=== PATIENT | male | born 1975 | race African-American/Black ===

== ENCOUNTER 2019-07-08 10:41 | Emergency (ER) | payer SELFPAY ==
--- NOTE | 2019-07-08 12:03 | ER ---
Nurse's Notes [facility] Name: Wai Garcia Age: 43 yrs Sex: Male : 1975 Arrival Date: 07/08/2019 Time: 10:42 Bed 11 Private MD: Diagnosis: Dermatitis, unspecified Presentation: 07/08 11:07 Presenting complaint: Patient states: R eye lid swollen since work last night. no ch matting. no visual issues. Transition of care: patient was not received from another setting of care. Onset of symptoms was July 07, 2019 at 21:00. Risk Assessment: Do you want to hurt yourself or someone else? Patient reports no desire to harm self or others. Initial Sepsis Screen: Does the patient meet any 2 criteria? No. Patient's initial sepsis screen is negative. Does the patient have a suspected source of infection? No. Patient's initial sepsis screen is negative. Care prior to arrival: None. 11:07 Method Of Arrival: Ambulatory 11:07 Acuity: [place] 5 ch Triage Assessment: 11:08 General: Appears in no apparent distress. comfortable, Behavior is calm, cooperative, ch appropriate for age. Pain: Complains of pain in right supraorbital ridge and right upper eyelid Pain currently is 2 out of 10 on a pain scale. EENT: Lid(s) pt has swelling of R eye lid. Historical: - Allergies: 11:08 No Known Allergies; ch - Home Meds: 11:08 None [Active]; ch - PMHx: 11:08 None; ch - PSHx: 11:08 None; ch - Immunization history:: Adult Immunizations up to date, Flu vaccine is not up to date. - Social history:: Smoking status: Patient/guardian denies using tobacco, Patient/guardian denies using alcohol, street drugs. - Ebola Screening: : Patient negative for fever greater than or equal to 101.5 degrees Fahrenheit, and additional compatible Ebola Virus Disease symptoms Patient denies exposure to infectious person Patient denies travel to an Ebola-affected area in the 21 days before illness onset No symptoms or risks identified at this time. Screenin:47 Abuse screen: Denies threats or abuse. Denies injuries from another. Nutritional ss screening: No deficits noted. Tuberculosis screening: Never had TB. Fall Risk None identified. Assessment: 11:47 General: Appears in no apparent distress. comfortable, Behavior is calm, cooperative, ss Denies fever, feeling ill, fatigue, chills. Pain: Complains of pain in right upper eyelid Pain currently is 2 out of 10 on a pain scale. Neuro: Level of Consciousness is awake, alert, obeys commands, Oriented to person, place, time, situation. Cardiovascular: Capillary refill < 3 seconds is brisk in bilateral fingers. Respiratory: Airway is patent Respiratory effort is even, unlabored, Respiratory pattern is regular, symmetrical. GI: No signs and/or symptoms were reported involving the gastrointestinal system. EENT: Nares are clear Oral mucosa is moist. Throat is clear. Derm: Skin is pink, warm \T\ dry. Musculoskeletal: mild swelling noted to R upper eyelid. Vital Signs: 11:08 BP 127 / 66; Pulse 72; Resp 16; Temp 98.8; Pulse Ox 98% on R/A; Weight 108.86 kg; ch Height 6 ft. 1 in. (185.42 cm); Pain 2/10; 11:08 Body Mass Index 31.66 (108.86 kg, 185.42 cm) ED Course: 10:42 Patient arrived in ED. as 11:08 Triage completed. 11:08 Arm band placed on left wrist. Patient placed in waiting room. 11:28 Shwetha Dinh FNP-C is [facility]. snw 11:28 Norman Varela MD is Attending Physician. snw 11:46 Lindsay Kate RN is Primary Nurse. 11:47 Patient has correct armband on for positive identification. Bed in low position. Call ss light in reach. 12:16 No provider procedures requiring assistance completed. Patient did not have IV access ss during this emergency room visit. Administered Medications: No medications were administered Outcome: 12:02 Discharge ordered by . snw 12:16 Discharged to home ambulatory. ss 12:16 Condition: good 12:16 Discharge instructions given to patient, Instructed on discharge instructions, follow up and referral plans. medication usage, Demonstrated understanding of instructions, follow-up care, medications, Prescriptions given X 2. 12:16 Patient left the ED. ss Signatures: Lanny Rascon RN RN Shwetha Dinh FNP-C INSPECTOR GOVERNMENT PROPERTY-Csnw Beverly Castillo as Smirch, Lindsay, RN RN ss
--- NOTE | 2019-07-08 12:03 | EDPHYS ---
Physician Documentation [facility] Name: Wai Garcia Age: 43 yrs Sex: Male : 1975 Arrival Date: 07/08/2019 Time: 10:42 Bed 11 Private MD: ED Physician Norman Varela HPI: 07/08 12:08 This 43 yrs old Black Male presents to ER via Ambulatory with complaints of Eye snw Swelling. 12:08 The patient is experiencing edema and itching to right upper eyelid at work last pm, pt snw states erythema and swelling has decreased a little but still remains, no tearing, The patient sustained None. to the right eye, caused by rubbing. Onset: The symptoms/episode began/occurred suddenly, last night. Duration: the symptoms are continuous. Associated signs and symptoms: Pertinent positives: None. Severity of symptoms: At their worst the symptoms were moderate. The patient has not experienced similar symptoms in the past. The patient has not recently seen a physician. Historical: - Allergies: 11:08 No Known Allergies; ch - Home Meds: 11:08 None [Active]; ch - PMHx: 11:08 None; ch - PSHx: 11:08 None; ch - Immunization history:: Adult Immunizations up to date, Flu vaccine is not up to date. - Social history:: Smoking status: Patient/guardian denies using tobacco, Patient/guardian denies using alcohol, street drugs. - Ebola Screening: : Patient negative for fever greater than or equal to 101.5 degrees Fahrenheit, and additional compatible Ebola Virus Disease symptoms Patient denies exposure to infectious person Patient denies travel to an Ebola-affected area in the 21 days before illness onset No symptoms or risks identified at this time. ROS: 12:07 Constitutional: Negative for fever, chills, and weight loss, ENT: Negative for injury, snw pain, and discharge, Neck: Negative for injury, pain, and swelling, Cardiovascular: Negative for chest pain, palpitations, and edema, Respiratory: Negative for shortness of breath, cough, wheezing, and pleuritic chest pain, Abdomen/GI: Negative for abdominal pain, nausea, vomiting, diarrhea, and constipation, Back: Negative for injury and pain, : Negative for injury, bleeding, discharge, and swelling, MS/Extremity: Negative for injury and deformity, Skin: Negative for injury, rash, and discoloration, Neuro: Negative for headache, weakness, numbness, tingling, and seizure, Psych: Negative for depression, anxiety, suicide ideation, homicidal ideation, and hallucinations. 12:07 Eyes: Positive for itching, swelling, of the right upper eyelid. Exam: 12:04 Constitutional: This is a well developed, well nourished patient who is awake, alert, snw and in no acute distress. Head/Face: Normocephalic, atraumatic. ENT: Nares patent. No nasal discharge, no septal abnormalities noted. Tympanic membranes are normal and external auditory canals are clear. Oropharynx with no redness, swelling, or masses, exudates, or evidence of obstruction, uvula midline. Mucous membranes moist. Neck: Trachea midline, no thyromegaly or masses palpated, and no cervical lymphadenopathy. Supple, full range of motion without nuchal rigidity, or vertebral point tenderness. No Meningismus. Chest/axilla: Normal chest wall appearance and motion. Nontender with no deformity. No lesions are appreciated. Cardiovascular: Regular rate and rhythm with a normal S1 and S2. No gallops, murmurs, or rubs. Normal PMI, no JVD. No pulse deficits. Respiratory: Lungs have equal breath sounds bilaterally, clear to auscultation and percussion. No rales, rhonchi or wheezes noted. No increased work of breathing, no retractions or nasal flaring. Abdomen/GI: Soft, non-tender, with normal bowel sounds. No distension or tympany. No guarding or rebound. No evidence of tenderness throughout. Back: No spinal tenderness. No costovertebral tenderness. Full range of motion. Skin: Warm, dry with normal turgor. Normal color with no rashes, no lesions, and no evidence of cellulitis. MS/ Extremity: Pulses equal, no cyanosis. Neurovascular intact. Full, normal range of motion. Neuro: Awake and alert, GCS 15, oriented to person, place, time, and situation. Cranial nerves II-XII grossly intact. Motor strength 5/5 in all extremities. Sensory grossly intact. Cerebellar exam normal. Normal gait. Psych: Awake, alert, with orientation to person, place and time. Behavior, mood, and affect are within normal limits. 12:04 Eyes: Periorbital structures: erythema, swelling, that is moderate, on the right supraorbital ridge and right upper eyelid, on the right upper eyelid, Pupils: no acute changes, Extraocular movements: no acute changes, Conjunctiva: normal, Corneas: are normal, exopthalmus noted. Vital Signs: 11:08 BP 127 / 66; Pulse 72; Resp 16; Temp 98.8; Pulse Ox 98% on R/A; Weight 108.86 kg; ch Height 6 ft. 1 in. (185.42 cm); Pain 11/08; 11:08 Body Mass Index 31.66 (108.86 kg, 185.42 cm) ch MDM: 11:53 Patient medically screened. snw 12:06 Data reviewed: vital signs, nurses notes. Data interpreted: Pulse oximetry: on room air snw is 98 %. Interpretation: normal. Counseling: I had a detailed discussion with the patient and/or guardian regarding: the historical points, exam findings, and any diagnostic results supporting the discharge/admit diagnosis, the need for outpatient follow up, to return to the emergency department if symptoms worsen or persist or if there are any questions or concerns that arise at home. Special discussion: Based on the history and exam findings, there is no indication for further emergent testing or inpatient evaluation. I discussed with the patient/guardian the need to see the opthamologist for further evaluation of the symptoms, I discussed with the patient/guardian the need to see the primary care provider for further evaluation of the symptoms. Administered Medications: No medications were administered Disposition: 17:26 Co-signature as Attending Physician, Norman Varela MD. Disposition: 07/08/19 12:02 Discharged to Home. Impression: Dermatitis, unspecified. - Condition is Stable. - Discharge Instructions: Contact Dermatitis, How to Use Eye Drops and Eye Ointments. - Prescriptions for Zyrtec 10 mg Oral Tablet - take 1 tablet by ORAL route once daily As needed; 20 tablet. Gentamicin 0.3 % (3 mg/gram) Ophthalmic Ointment - apply 0.5 inch by OPHTHALMIC route every 8 hours to right eyelid; 1 tube. - Work release form, Medication Reconciliation Form, Thank You Letter, Antibiotic Education, Prescription Opioid Use form. - Follow up: Private Physician; When: 2 - 3 days; Reason: Recheck today's complaints, Continuance of care, Re-evaluation by your physician. Follow up: Emergency Department; When: As needed; Reason: Worsening of condition. Signatures: Lanny Rascon, RN RN Shwetha Bettencourt, CYNDI-C GROUND OPERATIONS SUPERVISOR-Csnw Lindsay Kate RN RN ss Norman Varela MD MD gs Corrections: (The following items were deleted from the chart) 12:15 12:04 Eyes: Periorbital structures: erythema, swelling, that is moderate, on the right snw supraorbital ridge and right upper eyelid, on the right upper eyelid, Pupils: no acute changes, Extraocular movements: no acute changes, Conjunctiva: normal, Corneas: are normal, snw 12:16 12:02 07/08/2019 12:02 Discharged to Home. Impression: Dermatitis, unspecified. ss Condition is Stable. Forms are Medication Reconciliation Form, Thank You Letter, Antibiotic Education, Prescription Opioid Use. Follow up: Private Physician; When: 2 - 3 days; Reason: Recheck today's complaints, Continuance of care, Re-evaluation by your physician. Follow up: Emergency Department; When: As needed; Reason: Worsening of condition. snw
[2019-07-08 12:32] VITALS: BP 127/66; TEMP 98.8; O2SAT 98
== END 2019-07-08 12:16 | disposition home or self-care (01) ==
LOC: ER 10:41
DX: L30.9 Dermatitis, unspecified (principal)
CPT/HCPCS: 99282

== ENCOUNTER 2024-07-19 11:20 | Emergency (ER) | payer BC, SELFPAY ==
--- NOTE | 2024-07-19 12:44 | RAD REPORT ---
Exam:Knee Right 3 View HISTORY: Right knee pain FINDINGS: No fracture or dislocation seen No significant bone or joint abnormality noted
--- NOTE | 2024-07-19 13:48 | EDPHYS ---
Physician Documentation [facility] Name: Neil Garcia Age: 48 yrs Sex: Male : 1975 Arrival Date: 07/19/2024 Time: 11:20 Bed DX4 Private MD: ED Physician Hussein Benton HPI: 07/19 16:06 This 48 yrs old Black Male presents to ER via Ambulatory with complaints of Knee Pain. rt 16:06 Patient presents to the ED with atraumatic right knee pain starting about 3 days ago. rt Patient reports mild swelling to the lower knee, denies fever, chills. Denies of acute complaints, symptoms are mild in severity, no other aggravating or alleviating factors.. Historical: - Allergies: 11:35 No Known Allergies; ll1 - Home Meds: 11:35 None [Active]; ll1 - PMHx: 11:35 None; ll1 - PSHx: 11:35 None; ll1 - Immunization history:: Adult Immunizations up to date. - Infectious Disease History:: Denies. - Social history:: Smoking status: Patient denies any tobacco usage or history of. - Family history:: not pertinent. ROS: 16:06 Constitutional: Negative for fever, chills, and weight loss, Cardiovascular: Negative rt for chest pain, palpitations, and edema, Respiratory: Negative for shortness of breath, cough, wheezing, and pleuritic chest pain, Abdomen/GI: Negative for abdominal pain, nausea, vomiting, diarrhea, and constipation, Skin: Negative for injury, rash, and discoloration, Neuro: Negative for headache, weakness, numbness, tingling, and seizure, 16:06 MS/extremity: Positive for pain, swelling, Exam: 16:06 Constitutional: This is a well developed, well nourished patient who is awake, alert, rt and in no acute distress. Head/Face: Normocephalic, atraumatic. 16:06 Musculoskeletal/extremity: Mild tenderness to right knee, no appreciable swelling, no overlying skin changes, pulses, motor, sensation intact. 16:10 Chest/axilla: Normal chest wall appearance and motion. Nontender with no deformity. rt No lesions are appreciated. Cardiovascular: Regular rate and rhythm with a normal S1 and S2. No gallops, murmurs, or rubs. Normal PMI, no JVD. No pulse deficits. Respiratory: Lungs have equal breath sounds bilaterally, clear to auscultation and percussion. No rales, rhonchi or wheezes noted. No increased work of breathing, no retractions or nasal flaring. Abdomen/GI: Soft, non-tender, with normal bowel sounds. No distension or tympany. No guarding or rebound. No evidence of tenderness throughout. Vital Signs: 11:36 BP 143 / 98; Pulse 85; Resp 16; Temp 98; Pulse Ox 100% ; Weight 120.2 kg; Height 6 ft. ll1 1 in. ; Pain 7/10; 13:55 BP 141 / 91; Pulse 81; Resp 17; Pulse Ox 100% on R/A; ll1 11:36 Body Mass Index 34.96 (120.20 kg, 185.42 cm) ll1 11:36 Pain Scale: Adult ll1 MDM: 11:37 Medical Screening Exam initiated rt 16:10 Differential Diagnosis Arthritis, tendinitis. Data reviewed: vital signs, nurses notes, rt radiologic studies. Independent interpretation of the following test(s) in the Emergency Department X-Ray: My interpretation is No fracture seen on my interpretation of x-ray images. Test considered but Not performed: Labs: No clinical evidence to suggest a septic arthritis, labs, arthrocentesis are not indicated. Counseling: I had a detailed discussion with the patient and/or guardian regarding the historical points, exam findings, and any diagnostic results supporting the discharge/admit diagnosis, radiology results, the need for outpatient follow up, to return to the emergency department if symptoms worsen or persist or if there are any questions or concerns that arise at home. Response to treatment: the patient's symptoms have mildly improved after treatment. 07/19 11:41 Order name: Knee Right 3 View XRAY; Complete Time: 12:46 rt Administered Medications: No medications were administered Disposition Summary: 07/19/24 13:47 Discharge Ordered Notes: Location: Home rt Problem: new rt Symptoms: have improved rt Condition: Stable rt Diagnosis - Pain in right knee rt Followup: rt - With: Private Physician - When: 2 - 3 days - Reason: Discharge Instructions: - Discharge Summary Sheet rt - Acute Knee Pain, Adult rt Forms: - Work release form rt - Medication Reconciliation Form rt - Antibiotic Education rt - Prescription Opioid Use rt - Patient Portal Instructions rt - Leadership Thank You Letter rt Signatures: Brittney Jc RN RN ll1 Hussein Benton MD MD rt
--- NOTE | 2024-07-19 13:48 | ER ---
Nurse's Notes [facility] Name: Neil Garcia Age: 48 yrs Sex: Male : 1975 Arrival Date: 07/19/2024 Time: 11:20 Bed DX4 Private MD: Diagnosis: Pain in right knee Presentation: 07/19 11:36 Chief complaint: Patient states: R knee pain since Friday, no trauma. Coronavirus ll1 screen: Client denies travel out of the [place] in the last 14 days. At this time, the client does not indicate any symptoms associated with coronavirus-19. Ebola Screen: Patient denies travel to an Ebola-affected area in the 21 days before illness onset. Initial Sepsis Screen: Does the patient meet any 2 criteria? No. Patient's initial sepsis screen is negative. Does the patient have a suspected source of infection? No. Patient's initial sepsis screen is negative. Risk Assessment: Do you want to hurt yourself or someone else? Patient reports no desire to harm self or others. Onset of symptoms was July 17, 2024. 11:36 Method Of Arrival: Ambulatory ll1 11:36 Acuity: [place] 4 ll1 Triage Assessment: 11:39 General: Appears uncomfortable, Behavior is calm, cooperative, appropriate for age. ll1 Pain: Complains of pain in R knee. Musculoskeletal: Circulation, motion, and sensation intact. Capillary refill < 3 seconds, in right lower leg. Reports pain in R knee. Historical: - Allergies: 11:35 No Known Allergies; ll1 - Home Meds: 11:35 None [Active]; ll1 - PMHx: 11:35 None; ll1 - PSHx: 11:35 None; ll1 - Immunization history:: Adult Immunizations up to date. - Infectious Disease History:: Denies. - Social history:: Smoking status: Patient denies any tobacco usage or history of. - Family history:: not pertinent. Screenin:55 [facility] ED Fall Risk Assessment (Adult) History of falling in the last 3 months, ll1 including since admission No falls in past 3 months (0 pts) Confusion or Disorientation No (0 pts) Intoxicated or Sedated No (0 pts) Impaired Gait Yes (1 pt) Mobility Assist Device Used Yes (1 pt) Altered Elimination No (0 pt) Score/Fall Risk Level 0 - 2 = Low Risk Maintained a safe environment, Hourly rounding (assess needs \T\ fall precautionary measures) done. Abuse screen: Denies threats or abuse. Nutritional screening: No deficits noted. Tuberculosis screening: No symptoms or risk factors identified. Assessment: 13:55 Reassessment: No changes from previously documented assessment. Patient and/or family ll1 updated on plan of care and expected duration. Pain level reassessed. Patient is alert, oriented x 3, equal unlabored respirations, skin warm/dry/pink. Vital Signs: 11:36 BP 143 / 98; Pulse 85; Resp 16; Temp 98; Pulse Ox 100% ; Weight 120.2 kg; Height 6 ft. ll1 1 in. ; Pain 7/10; 13:55 BP 141 / 91; Pulse 81; Resp 17; Pulse Ox 100% on R/A; ll1 11:36 Body Mass Index 34.96 (120.20 kg, 185.42 cm) ll1 11:36 Pain Scale: Adult ll1 ED Course: 11:25 Patient arrived in ED. mg5 11:25 Hussein Benton MD is Attending Physician. rt 11:37 Triage completed. ll1 11:37 Arm band placed on. ll1 12:34 Knee Right 3 View XRAY In Process Unspecified. EDMS 13:43 Patient placed in a hallway bed, in a wheelchair. ll1 13:55 No provider procedures requiring assistance completed. Patient did not have IV access ll1 during this emergency room visit. 13:56 Patient has correct armband on for positive identification. Provided Education on: ll1 return to ED for worsening symptoms. Administered Medications: No medications were administered Medication: 13:57 VIS not applicable for this client. ll1 Outcome: 13:47 Discharge ordered by . rt 13:55 Discharged to home via wheelchair, ll1 13:55 Condition: stable 13:55 Discharge instructions given to patient, family, Instructed on discharge instructions, follow up and referral plans. Demonstrated understanding of instructions, follow-up care, 13:57 Patient left the ED. ll1 Signatures: Dispatcher [employer] EDMS Brittney Stapleton RN RN ll1 Hussein Benton MD MD rt Veronica Brady mg5
[2024-07-19 16:01] VITALS: TEMP 98; O2SAT 100
[2024-07-19 16:02] VITALS: BP 141/91
== END 2024-07-19 13:57 | disposition home or self-care (01) ==
LOC: ER 11:20
DX: M25.561 Pain in right knee (principal)
CPT/HCPCS: 99282

== ENCOUNTER 2024-11-01 17:12 | Emergency (ER) | payer BC ==
--- NOTE | 2024-11-01 18:09 | RAD REPORT ---
EXAM: Chest Single View HISTORY: Cough;Congestion COMPARISON: 09/22/2017 FINDINGS: LUNGS/PLEURA: The lungs are clear. No pleural effusions or pneumothorax. No pulmonary edema. MEDIASTINUM: The mediastinal silhouette is within normal limits. CARDIAC: The cardiac silhouette is within normal limits. UPPER ABDOMEN: No significant abnormality. BONES: No acute abnormality. LINES/TUBES/OTHER: N/A IMPRESSION: No evidence of acute cardiopulmonary disease.
[2024-11-01 18:56] LABS: SARS-CoV-2 Antigen CONTROL BLUE LINE VIS/BG OK; SARS-CoV-2 Antigen Rapid Res Negative (Negative)
--- NOTE | 2024-11-01 18:58 | ER ---
Nurse's Notes [facility] Name: Neil Garcia Age: 49 yrs Sex: Male : 1975 Arrival Date: 11/01/2024 Time: 17:12 Bed IW2 Private MD: Diagnosis: Acute upper respiratory infection, unspecified Presentation: 11/01 17:56 Chief complaint: Headache, cough, congestion, malaise, fatigue, chills, and body aches hb x 5-6 days. Coronavirus screen: Client presents with at least one sign or symptom that may indicate coronavirus-19. Provider contacted for isolation considerations. Ebola Screen: No symptoms or risks identified at this time. Initial Sepsis Screen: Does the patient meet any 2 criteria? No. Patient's initial sepsis screen is negative. Does the patient have a suspected source of infection? No. Patient's initial sepsis screen is negative. Risk Assessment: Do you want to hurt yourself or someone else? Patient reports no desire to harm self or others. Onset of symptoms was October 27, 2023. 17:56 Method Of Arrival: Ambulatory hb 17:56 Acuity: [place] 4 hb Historical: - Allergies: 17:58 No Known Allergies; hb - Home Meds: 17:58 None [Active]; hb - PMHx: 17:58 None; hb - PSHx: 17:58 None; hb - Immunization history:: Adult Immunizations up to date. - Infectious Disease History:: Denies. - Social history:: Smoking status: Patient denies any tobacco usage or history of. Vital Signs: 17:56 BP 148 / 87; Pulse 88; Resp 16; Temp 98.8(O); Pulse Ox 100% on R/A; Weight 111.13 kg; hb Height 6 ft. 1 in. ; Pain 4/10; 17:56 Body Mass Index 32.32 (111.13 kg, 185.42 cm) hb 17:56 Pain Scale: Adult hb ED Course: 17:16 Patient arrived in ED. mr 17:17 Julianna Jang FNP-C is PHCP. kb 17:17 Nacho Taveras MD is Attending Physician. kb 17:58 Triage completed. hb 17:59 Arm band placed on. hb 18:01 Chest Single View XRAY In Process Unspecified. EDMS Administered Medications: No medications were administered Outcome: 18:58 Discharge ordered by . nancy 19:15 Discharged to home ambulatory, hb 19:15 Condition: stable 19:15 Discharge instructions given to patient, Instructed on discharge instructions, follow up and referral plans. medication usage, Demonstrated understanding of instructions, follow-up care, medications, Prescriptions given X 1, 19:16 Patient left the ED. hb Signatures: Dispatcher [employer] EDMS Julianna Jang, OPHTHALMIC SURGEON-C OPHTHALMIC SURGEON-Laura Rodriguez, Reg Reg Letha Gallo, RN RN hb
--- NOTE | 2024-11-01 18:58 | EDPHYS ---
Physician Documentation [facility] Name: Neil Garcia Age: 49 yrs Sex: Male : 1975 Arrival Date: 11/01/2024 Time: 17:12 Bed IW2 Private MD: ED Physician Nacho Taveras HPI: 11/01 17:48 This 49 yrs old Black Male presents to ER via Unassigned with complaints of Flu kb Symptoms. 17:48 Pt is a 49 year old male who presents for cough, congestion, nausea, fever and chills kb that started 6 days ago. Denies vomiting, chest pain, shortness of breath, bodyaches, sore throat. States it isn't getting better so that is what made him come in today. . Historical: - Allergies: 17:58 No Known Allergies; hb - Home Meds: 17:58 None [Active]; hb - PMHx: 17:58 None; hb - PSHx: 17:58 None; hb - Immunization history:: Adult Immunizations up to date. - Infectious Disease History:: Denies. - Social history:: Smoking status: Patient denies any tobacco usage or history of. ROS: 17:48 Constitutional: As per HPI kb Exam: 17:48 Constitutional: This is a well developed, well nourished patient who is awake, alert, kb and in no acute distress. Head/Face: Normocephalic, atraumatic. ENT: Moist Mucous membranes Cardiovascular: Regular rate Respiratory: Respirations even and unlabored. No increased work of breathing. Talking in full sentences Skin: Warm, dry with normal turgor. Normal color. MS/ Extremity: Pulses equal, no cyanosis. Neurovascular intact. Full, normal range of motion. Neuro: Awake and alert, GCS 15, oriented to person, place, time, and situation. Vital Signs: 17:56 BP 148 / 87; Pulse 88; Resp 16; Temp 98.8(O); Pulse Ox 100% on R/A; Weight 111.13 kg; hb Height 6 ft. 1 in. ; Pain 4/10; 17:56 Body Mass Index 32.32 (111.13 kg, 185.42 cm) hb 17:56 Pain Scale: Adult hb MDM: 17:17 Medical Screening Exam initiated kb 17:49 Data reviewed: vital signs, nurses notes. kb 18:57 Differential diagnosis: flu, covid, pneumonia, URI. I considered the following kb discharge prescriptions or medication management in the emergency department I discussed and recommended Over The Counter medications, Antibiotics: At this time antibiotics are not recommended, Antivirals: At this time, antivirals are not recommended. Counseling: I had a detailed discussion with the patient and/or guardian regarding the historical points, exam findings, and any diagnostic results supporting the discharge/admit diagnosis, lab results, radiology results, the need for outpatient follow up, a family practitioner, to return to the emergency department if symptoms worsen or persist or if there are any questions or concerns that arise at home. 11/01 17:38 Order name: Flu; Complete Time: 18:57 kb 11/01 17:38 Order name: SARS-COV-2 Antigen Rapid; Complete Time: 18:56 kb 11/01 17:38 Order name: Chest Single View XRAY; Complete Time: 18:14 kb Administered Medications: No medications were administered Disposition Summary: 11/01/24 18:58 Discharge Ordered Notes: Location: Home kb Condition: Stable kb Diagnosis - Acute upper respiratory infection, unspecified kb Followup: kb - With: Emergency Department - When: As needed - Reason: Worsening of condition Followup: kb - With: Private Physician - When: 2 - 3 days - Reason: Recheck today's complaints, Continuance of care, Re-evaluation by your physician Discharge Instructions: - Discharge Summary Sheet kb - Upper Respiratory Infection, Adult, [id number] kb - Viral Respiratory Infection, [id number] kb Forms: - Medication Reconciliation Form kb - Antibiotic Education kb - Prescription Opioid Use kb - Patient Portal Instructions kb - Leadership Thank You Letter kb - Work release form rv1 Prescriptions: - Tessalon Perles 100 mg Oral Capsule - take 1 capsule ORAL route every 8 hours As needed; 15 capsule; Refills: 0, kb Product Selection Permitted Addendum: 11/03/2024 17:31 I was immediately available for consultation during this patient's visit. I did not e c2 personally see the patient or discuss the patient with the [facility]. . Signatures: Dispatcher [employer] Julianna Espitia FNP-C FNP-Ckb Baxter, Heather, RN RN Nacho Taveras MD MD ec2
[2024-11-01 19:19] VITALS: BP 148/87; TEMP 98.8; O2SAT 100
== END 2024-11-01 19:16 | disposition home or self-care (01) ==
LOC: ER 17:12
DX: J06.9 Acute upper respiratory infection, unspecified (principal); Z11.52 Encounter for screening for COVID-19
CPT/HCPCS: 36415; 71045; 87804; 87811; 99283